=== PATIENT | male | born 1965 | race Caucasian/White ===

== ENCOUNTER 2017-08-09 10:27 | Emergency (ER) | payer SELFPAY ==
[~2017-08-09] VITALS: Ht 177.8 cm; Wt 83.9 kg
[2017-08-09 10:30] VITALS: BP 163/100
--- NOTE | 2017-08-09 11:03 | Emergency Room Report ---
History of Present Illness General Chief Complaint: Seizure Source: Patient, EMS Present Illness HPI 52-year-old male, no significant past medical history, presenting with seizure. Patient states that he was sitting on the couch, watching TV with his sister, he proceeded to have a 1 minute generalized tonic-clonic seizure as described by EMS. Patient bit his tongue. There was a post ictal phase. He denies having any history of seizures. Denies any alcohol use denies any drug use. Currently denying any symptoms, no fever chills neck pain headache blurry vision Allergies: Coded Allergies: No Known Allergies (Unverified , 08/09/17) Patient History Past Medical History: see triage record Past Surgical History: none Pertinent Family History: none Reviewed Nursing Documentation: PMH: Agreed, PSxH: Agreed Nursing Documentation-PMH Past Medical History: No History, Except For Hx Hypertension: Yes History Of Psychiatric Problem: Yes - DEPRESSION Review of Systems All Other Systems: negative except mentioned in HPI Physical Exam Vital Signs Date Time Temp Pulse Resp B/P (MAP) Pulse Ox O2 Delivery O2 Flow Rate FiO2 08/09/17 10:24 98.1 112 20 142/86 100 Room Air Sp02 EP Interpretation: reviewed, normal General Appearance: normal inspection, well appearing, no apparent distress, alert, GCS 15, non-toxic Head: normocephalic, atraumatic Eyes: bilateral eye normal inspection, bilateral eye PERRL, bilateral eye EOMI ENT: normal voice, moist mucus membranes, other - +tongue bleeding Neck: normal inspection, full range of motion, supple Respiratory: normal inspection, lungs clear, normal breath sounds, no respiratory distress, no retraction, no wheezing, speaking full sentences, chest symmetrical Cardiovascular #1: normal inspection, regular rate, rhythm, no edema, normal capillary refill Cardiovascular #2: 2+ radial (R), 2+ radial (L) Gastrointestinal: normal inspection, non tender, soft, non-distended, no guarding Genitourinary: no CVA tenderness Musculoskeletal: normal inspection, back normal, normal range of motion, non- tender Neurologic: normal inspection, alert, oriented x3, responsive, motor strength/ tone normal, sensory intact, normal gait, speech normal Psychiatric: normal inspection, judgement/insight normal, memory normal Skin: normal inspection, normal color, no rash, warm/dry, well hydrated, normal turgor Medical Decision Making Diagnostic Impression: Primary Impression: Seizure Additional Impressions: Methamphetamine abuse Marijuana abuse ER Course 52-year-old male with p/w seizure, no history of seizures DDX: Primary seizure, triggered by infection UTI/PNA vs. dehydration vs. medication non compliance Electrolyte disturbance: hypoglycemia vs. hyponatremia vs. hypocalcemia vs. hypomagnesemia Cardiac: Arrythmia/acs Intracranial pathology: intracranial bleed, stroke Tox Plan: BGM EKG Labs, tox labs CT Ativan PRN / anti seizure meds ER course: No further seizures in ED Has been stable during ED stay. AOx4, no neurological signs or symptoms CT Head neg drug screen positive for marijuana and benzo he has been conversing w sister at bedside will dc home Disposition: Patient will be discharged to home. Patient is to follow up with their primary care doctor in 5 days and neurologist within 1 week. Strict return precautions discussed such as severe headache, fever, chills, neck pain, prolonged or increased frequency of seizures. Patient verbalized understanding and agrees with plan. EKG Diagnostic Results EP Interpretation: Yes Rate: normal Rhythm: NSR ST Segments: No acute changes ASA given to patient: No Laboratory Tests Test 08/09/17 10:50 White Blood Count 3.8 K/UL (4.8-10.8) L Red Blood Count 4.78 M/UL (4.70-6.10) Hemoglobin 15.7 G/DL (14.2-18.0) Hematocrit 48.1 % (42.0-52.0) Mean Corpuscular Volume 101 FL (80-99) H Mean Corpuscular Hemoglobin 32.9 PG (27.0-31.0) H Mean Corpuscular Hemoglobin Concent 32.7 G/DL (32.0-36.0) Red Cell Distribution Width 12.3 % (11.6-14.8) Platelet Count 30 K/UL (150-450) L Mean Platelet Volume 9.9 FL (6.5-10.1) Neutrophils (%) (Auto) % (45.0-75.0) Lymphocytes (%) (Auto) % (20.0-45.0) Monocytes (%) (Auto) % (1.0-10.0) Eosinophils (%) (Auto) % (0.0-3.0) Basophils (%) (Auto) % (0.0-2.0) Differential Total Cells Counted 100 Neutrophils % (Manual) 70 % (45-75) Lymphocytes % (Manual) 17 % (20-45) L Monocytes % (Manual) 13 % (1-10) H Eosinophils % (Manual) 0 % (0-3) Basophils % (Manual) 0 % (0-2) Band Neutrophils 0 % (0-8) Platelet Estimate Decreased L Platelet Morphology Normal Anisocytosis 1+ Macrocytosis 1+ Urine Color Brown Urine Appearance Clear Urine pH 6.5 (4.5-8.0) Urine Specific [place] 1.020 (1.005-1.035) Urine Protein 3+ (NEGATIVE) H Urine Glucose (UA) Negative (NEGATIVE) Urine Ketones 4+ (NEGATIVE) H Urine Occult Blood 3+ (NEGATIVE) H Urine Nitrite Negative (NEGATIVE) Urine Bilirubin 1+ (NEGATIVE) H Urine Ictotest Negative Urine Urobilinogen 12 MG/DL (0.0-1.0) H Urine Leukocyte Esterase 1+ (NEGATIVE) H Urine RBC 5-10 /HPF (0 - 0) H Urine WBC 0-2 /HPF (0 - 0) Urine Squamous Epithelial Cells Occasional /LPF Urine Bacteria Few /HPF (NONE) Sodium Level 136 MMOL/L (136-145) Potassium Level 3.7 MMOL/L (3.5-5.1) Chloride Level 96 MMOL/L (98-107) L Carbon Dioxide Level 24 MMOL/L (21-32) Anion Gap 16 mmol/L (5-15) H Blood Urea Nitrogen 11 mg/dL (7-18) Creatinine 1.0 MG/DL (0.55-1.30) Estimate Glomerular Filtration Rate > 60 mL/min (>60) Glucose Level 180 MG/DL (74-106) H Calcium Level 9.5 MG/DL (8.5-10.1) Total Bilirubin 2.8 MG/DL (0.2-1.0) H Direct Bilirubin 1.0 MG/DL (0.0-0.3) H Aspartate Amino Transferase (AST) 175 U/L (15-37) H Alanine Aminotransferase (ALT) 116 U/L (12-78) H Alkaline Phosphatase 80 U/L (46-116) Troponin I 0.000 ng/mL (0.000-0.056) Total Protein 8.8 G/DL (6.4-8.2) H Albumin 4.2 G/DL (3.4-5.0) Globulin 4.6 g/dL Albumin/Globulin Ratio 0.9 (1.0-2.7) L Salicylates Level < 0.2 ug/mL (2.8-20) L Urine Opiates Screen Negative (NEGATIVE) Acetaminophen Level < 2 MCG/ML (10-30) L Urine Barbiturates Screen Negative (NEGATIVE) Phencyclidine (PCP) Screen Negative (NEGATIVE) Urine Amphetamines Screen Negative (NEGATIVE) Urine Benzodiazepines Screen Positive (NEGATIVE) H Urine Cocaine Screen Negative (NEGATIVE) Urine Marijuana (THC) Screen Positive (NEGATIVE) H Serum Alcohol < 3 mg/dL CT/MRI/US Diagnostic Results CT/MRI/US Diagnostic Results : Imaging Test Ordered: CT Head Last Vital Signs Date Time Temp Pulse Resp B/P (MAP) Pulse Ox O2 Delivery O2 Flow Rate FiO2 08/09/17 10:24 98.1 112 20 142/86 100 Room Air Disposition: HOME, SELF-CARE Condition: Improved Scripts No Active Prescriptions or Reported Meds Referrals: NOT CHOSEN IPA/,REFERRING (PCP) Ella Burgos M.D. Aug 09, 2017 11:03
[2017-08-09 11:05] LABS: HEMATOCRIT 48.1 % (42.0-52.0); HEMOGLOBIN 15.7 G/DL (14.2-18.0); MEAN CORPUSCULAR VOLUME 101 FL (80-99); PLATELET COUNT 30 K/UL (150-450); RED BLOOD COUNT 4.78 M/UL (4.70-6.10); RED CELL DISTRIBUTION WIDTH 12.3 % (11.6-14.8); WHITE BLOOD COUNT 3.8 K/UL (4.8-10.8)
[2017-08-09 11:12] LABS: BILIRUBIN, URINE 1+ (NEGATIVE); COLOR,URINE BROWN; GLUCOSE, URINE (UA) NEGATIVE (NEGATIVE); KETONES,URINE 4+ (NEGATIVE); LEUKOCYTE ESTERASE ,URINE 1+ (NEGATIVE); NITRITE,URINE NEGATIVE (NEGATIVE); PH,URINE 6.5 (4.5-8.0); PROTEIN,URINE 3+ (NEGATIVE); UROBILINOGEN,URINE 12 MG/DL (0.0-1.0)
[2017-08-09 11:16] LABS: ANION GAP 16 mmol/L (5-15); BLOOD UREA NITROGEN 11 mg/dL (7-18); CALCIUM 9.5 MG/DL (8.5-10.1); CARBON DIOXIDE 24 MMOL/L (21-32); CHLORIDE 96 MMOL/L (98-107); POTASSIUM 3.7 MMOL/L (3.5-5.1); SODIUM 136 MMOL/L (136-145)
[2017-08-09 11:27] LABS: ALANINE AMINOTRANSFERASE 116 U/L (12-78); ALBUMIN 4.2 G/DL (3.4-5.0); ALBUMIN/GLOBULIN RATIO 0.9 (1.0-2.7); ALKALINE PHOSPHATASE 80 U/L (46-116); ASPARTATE AMINO TRANSFERASE 175 U/L (15-37); BILIRUBIN,TOTAL 2.8 MG/DL (0.2-1.0)
--- NOTE | 2017-08-09 11:35 | Diagnostic Imaging Report ---
Indications: Altered mental status Technique: Spiral acquisitions obtained through the brain. Angled axial and coronal 5 x 5 mm slices were reconstructed. Total dose length product 1432.39 mGycm. CTDI vol(s) 70.38 mGy. Dose reduction achieved using automated exposure control Comparison: None. Findings: There is mild prominence of the ventricles and extra-axial CSF spaces, somewhat out of proportion to age. No acute intracranial hemorrhage or edema. No mass effect nor midline shift. Normal romo-white differentiation. Intact calvarium. Negative for acute intracranial bleed or mass effect there is minimal ethmoid sinus disease. The orbits are unremarkable. Impression: Mild cerebral volume loss, somewhat out of portion to age Minimal sinus disease Negative for acute intracranial bleed or mass effect The CT scanner at [facility] is accredited by the [employer] and the scans are performed using protocols designed to limit radiation exposure to as low as reasonably achievable to attain images of sufficient resolution adequate for diagnostic evaluation.
[2017-08-09 11:37] LABS: APPEARANCE,URINE CLEAR
[2017-08-09 11:59] VITALS: BP 163/100
--- NOTE | 2017-08-10 17:08 | Cardiology Report ---
APPROVED REPORT EKG Measurement Heart [id number] Normal sinus rhythm Cannot rule out Inferior infarct, age undetermined Cannot rule out Anterior infarct, age undetermined Abnormal ECG
== END 2017-08-09 12:01 | disposition home or self-care (01) ==
LOC: EDBD 10:27 → EMR 10:51
DX: F32.9 Major depressive disorder, single episode, unspecified (principal); F12.10 Cannabis abuse, uncomplicated; R56.9 Unspecified convulsions
CPT/HCPCS: 36415; 70450; 80053; 80307; 81003; 82248; 82962; 84484; 85007; 85025; 93005; 99284; G0480; 80329